=== PATIENT | female | born 1995 | race Caucasian/White ===

== ENCOUNTER 2017-07-13 02:32 | Observation (INO) | payer OTHER ==
[~2017-07-13] VITALS: Ht 157.5 cm; Wt 69.0 kg
[2017-07-13] VITALS (14 sets, daily range): BP systolic 106–139; BP diastolic 48–79; PULSE 69–120; RESP 16–20; TEMP 97.6–99; O2SAT 100
[~2017-07-13 02:32] MED LIST: ZITH500T PO
[2017-07-13] MEDS ORDERED: FERR140T PO (02:52)
[2017-07-13] MEDS ORDERED: PRENTAB7 (02:52)
[2017-07-13 03:02] LABS: BASOPHIL % 0.2 % (0.0-2.0); EOSINOPHIL % 0.1 % (0.0-4.0); HEMATOCRIT 32.5 % (35.0-46.0); LYMPH % 22.2 % (9.0-44.0); LYMPHOCYTE # 3.1 TH/MM3 (1.0-4.8); MEAN CELL VOLUME 87.3 FL (80.0-100.0); MEAN CORPUSCULAR HEMOGLOBIN 30.7 PG (27.0-34.0); MEAN CORPUSCULAR HGB CONC 35.1 % (32.0-36.0); MONO % 5.6 % (0.0-8.0); NEUT % 71.9 % (16.0-70.0); PLATELET COUNT 282 TH/MM3 (150-450); RED BLOOD COUNT 3.72 MIL/MM3 (4.00-5.30); RED CELL DISTRIBUTION WIDTH 12.5 % (11.6-17.2); WHITE BLOOD COUNT 13.9 TH/MM3 (4.0-11.0)
[2017-07-13 03:03] LABS: HEMO FLAGS DIFF FINAL
[2017-07-13 03:12] LABS: BACTERIA, URINE MANY /hpf; BLOOD, URINE MOD (NEG); COMMENT (UR) CULTURE INDICATED; CULTURE IF INDICATED CULTURE INDICATED; GLUCOSE,URINE NEG (NEG); KETONE, URINE NEG (NEG); NITRITE,URINE NEG (NEG); SQUAMOUS EPITHELIAL CELL URINE 19 /hpf (0-5); URINE COLOR YELLOW (YELLW/STRAW)
[2017-07-13 03:14] LABS: ALT (GPT) 68 U/L (9-42); ANION GAP 12 MEQ/L (5-15); AST (GOT) 34 U/L (16-38); BLOOD UREA NITROGEN 12 MG/DL (7-18); CHLORIDE 104 MEQ/L (98-107); POTASSIUM 3.6 MEQ/L (3.5-5.1); SODIUM (NA) 138 MEQ/L (136-145)
[2017-07-13 03:15] LABS: ALKALINE PHOSPHATASE 148 U/L (45-117); GLOMERULAR FILTRATION RATE 118 ML/MIN (>89); TOTAL BILIRUBIN ADULT 0.2 MG/DL (0.2-1.0)
[2017-07-13] MEDS ORDERED: cefTRIAXone INJ 1,000 MG in SODIUM CHLORIDE 0.9% INJ 100 ML IV ONE (03:30)
[2017-07-13] MEDS ORDERED: CEPH-460 PO (04:17)
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
[2017-07-13] MEDS ORDERED: cefTRIAXone INJ 1,000 MG in SODIUM CHLORIDE 0.9% INJ 100 ML IV SCH (05:00)
[2017-07-13] MEDS ORDERED: SODIUM CHLORIDE 0.9% FLUSH 10 ML FLUSH IV FLUSH PRN (05:00)
[2017-07-13] MEDS ORDERED: ONDANSETRON HCL 4 MG/2 ML VIAL IV PUSH PRN (05:00)
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
[2017-07-13] MEDS: ACETAMINOPHEN 325 MG TAB PO PRN ×3 (05:54→20:04)
[2017-07-13 07:52] LABS: INTERNATIONAL NORMALIZED RATIO 0.9 RATIO; PROTHROMBIN TIME - PATIENT 10.3 SEC (9.8-11.6)
[2017-07-13] MEDS: SODIUM CHLORIDE 0.9% FLUSH 10 ML FLUSH IV FLUSH SCH (08:27)
[2017-07-14] MEDS ORDERED: cefTRIAXone INJ 1,000 MG in SODIUM CHLORIDE 0.9% INJ 100 ML IV SCH (04:00)
[2017-07-14] MEDS: SODIUM CHLORIDE 0.9% FLUSH 10 ML FLUSH IV FLUSH SCH (04:09)
[2017-07-14 04:12] VITALS: BP 115/63; PULSE 72; RESP 18; TEMP 97.7
[2017-07-14 07:50] VITALS: RESP 17; TEMP 98
[2017-07-14 10:00] VITALS: RESP 18
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
[2017-07-14 10:39] LABS: AUTOMATED NEUTROPHIL # 5.3 TH/MM3 (1.8-7.7); BASOPHIL % 0.6 % (0.0-2.0); EOSINOPHIL % 0.3 % (0.0-4.0); HEMO FLAGS DIFF FINAL; LYMPH % 29.7 % (9.0-44.0); LYMPHOCYTE # 2.5 TH/MM3 (1.0-4.8); MEAN CELL VOLUME 88.5 FL (80.0-100.0); MEAN CORPUSCULAR HEMOGLOBIN 30.7 PG (27.0-34.0); MEAN CORPUSCULAR HGB CONC 34.7 % (32.0-36.0); MONO % 6.7 % (0.0-8.0); NEUT % 62.7 % (16.0-70.0); PLATELET COUNT 267 TH/MM3 (150-450); RED BLOOD COUNT 3.62 MIL/MM3 (4.00-5.30); RED CELL DISTRIBUTION WIDTH 12.6 % (11.6-17.2); WHITE BLOOD COUNT 8.5 TH/MM3 (4.0-11.0)
[2017-07-14 11:00] LABS: ANION GAP 9 MEQ/L (5-15); AST (GOT) 35 U/L (16-38); BICARBONATE 22.2 MEQ/L (21.0-32.0); BLOOD UREA NITROGEN 8 MG/DL (7-18); CHLORIDE 105 MEQ/L (98-107); GLOMERULAR FILTRATION RATE 154 ML/MIN (>89); SODIUM (NA) 136 MEQ/L (136-145)
[2017-07-14 11:02] LABS: ALT (GPT) 68 U/L (9-42)
[2017-07-14 11:04] LABS: ALKALINE PHOSPHATASE 124 U/L (45-117); TOTAL BILIRUBIN ADULT 0.2 MG/DL (0.2-1.0)
[2017-07-14] MEDS ORDERED: CEPH-460 PO (11:11)
[2017-07-14] MEDS ORDERED: CEPH500C PO (11:15)
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
[2017-07-19 10:53] LABS: BATH SALTS (MDPV) UR NEG (NEG); ECSTASY (MDMA) UR NEG (NEG); HEROIN (6-ACETYLMORPHINE) UR NEG (NEG); K2 SPICE UR NEG (NEG); OBMETHADONE UR NEG (NEG); PHENCYCLIDINE URINE NEG (NEG)
[2017-07-19 10:54] LABS: OBGABAPENTIN UR NEG (NEG); OBHYDROMORPHONE U NEG (NEG)
[2017-07-29] MEDS ORDERED: FLU60SYR19 IM (14:18)
[2017-07-29] MEDS ORDERED: RANI150T PO (14:48)
== END 2017-07-14 11:31 | disposition home or self-care (01) ==
LOC: NEPE 02:32 → H2EA 04:55
PROVIDERS: ADMIT Obstetrics & Gynecology Maternal & Fetal Medicine; ATTEND Obstetrics & Gynecology Maternal & Fetal Medicine
DX: Z34.92 Encounter for supervision of normal pregnancy, unspecified, second trimester (principal); O23.12 Infections of bladder in pregnancy, second trimester; O24.912 Unspecified diabetes mellitus in pregnancy, second trimester; V89.2XXA Person injured in unspecified motor-vehicle accident, traffic, initial encounter; Y92.410 Unspecified street and highway as the place of occurrence of the external cause; Z3A.27 27 weeks gestation of pregnancy
CPT/HCPCS: 76816; 80053; 80307; 81001; 85025; 85384; 85610; 86403; 86901; 87086; 96365; 96376; 99285; G0378; G0481; J0696

== ENCOUNTER 2017-07-18 16:43 | Emergency (ER) | payer OTHER ==
[~2017-07-18] VITALS: Ht 157.5 cm; Wt 68.8 kg
[~2017-07-18 16:43] MED LIST changes: +CEPH500C PO; +FERR140T PO; +PRENTAB7; -ZITH500T PO
[2017-07-18 16:57] VITALS: BP 114/65; PULSE 75; RESP 18; TEMP 98.1; O2SAT 99
[2017-07-18] MEDS ORDERED: HYDR-4107 PO (18:32)
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
[2017-07-29] MEDS ORDERED: FLU60SYR19 IM (14:18)
[2017-07-29] MEDS ORDERED: RANI150T PO (14:48)
== END 2017-07-18 18:49 | disposition home or self-care (01) ==
LOC: PHEFT 16:43 → PHED 18:49
DX: O99.352 Diseases of the nervous system complicating pregnancy, second trimester (principal); G44.209 Tension-type headache, unspecified, not intractable; Z3A.28 28 weeks gestation of pregnancy
CPT/HCPCS: 99283

== ENCOUNTER 2017-09-21 15:47 | Emergency (ER) | payer OTHER ==
[~2017-09-21 15:47] MED LIST changes: -CEPH500C PO; +RANI150T PO; +ZANT150T2 PO
--- NOTE | 2017-09-21 17:00 | PD ---
HPI Chief Complaint high blood pressure Date Seen: Sep 21, 2017 Travel History International Travel<30 Days: No Contact w/Intl Traveler<30Days: No Known Affected Area: No History of Present Illness HPI 21-year-old who was seen earlier today for a consult due to a breech presentation. Thereafter she presented at her cover creaser's office and was noted to have a blood pressure 116/90 and some protein in her urine. A sent her here for an evaluation patient denies headache abdominal pain or swelling. History Past Medical History Medical History: Denies Significant Hx Past Surgical History Surgical History: No Previous Surgery Family History Family History: Negative Social History Tobacco Use: No Substance Abuse: No Allergies-Medications (Allergen,Severity, Reaction): Coded Allergies: No Known Allergies (Verified Allergy, Unknown, 09/14/17) Home Meds Active Scripts Ranitidine (Zantac) 150 Mg Tab, 150 MG PO BID for Reduce Stomach Acid, #60 TAB 5 Refills Prov:Sandra Wilson GEAR INSPECTOR 09/07/17 Ranitidine (Ranitidine) 150 Mg Tab, 150 MG PO DAILY for Heartburn Management, # 30 TAB 1 Refill Prov:Isabella Quan CNM [facility] 07/29/17 Reported Medications Ferrous Sulfate ER (Ferrous Sulfate ER) 140 Mg (45 Mg Iron) Tab, 140 MG PO DAILY for Nutritional Supplement, #30 TAB 0 Refills 07/13/17 Pnv No.95/Ferrous Fum/Folic AC ( Vitamins Tablet) 28 Mg Iron-800 Mcg Tablet 07/13/17 Review of Systems Except as stated in HPI: all other systems reviewed are Neg Physical Exam Narrative GENERAL: Well-nourished, well-developed patient. SKIN: Warm and dry. HEAD: Normocephalic and atraumatic. EYES: No scleral icterus. No injection or drainage. ENT: No nasal drainage noted. Mucous membranes pink. Airway patent. NECK: Supple, trachea midline. No JVD. CARDIOVASCULAR: Regular rate and rhythm without murmurs, gallops, or rubs. RESPIRATORY: Breath sounds equal bilaterally. No accessory muscle use. ABDOMEN/GI: Abdomen soft, non-tender, bowel sounds present, no rebound, no guarding Gravid to [-] weeks size 36 Fundal Height: [-] GENITOURINARY: Deferred patient was checked in the office today and she was 1 cm External Genitalia: intact and normal in appearance BUS glands: [-] Cervix: [-] Dilatation: [-] Effacement: [-] Station: [-] Presentation: [-] Membranes: [intact or ruptured] Uterine Contractions: [-] FHT's: Category: [-] 1 Baseline: [-] 140 Reactive: [-] Moderate Variability: [-] Moderate Decels: [-] Absent EXTREMITIES: No cyanosis or edema. BACK: Nontender without obvious deformity. No CVA tenderness. NEUROLOGICAL: Awake and alert. Motor and sensory grossly within normal limits. Five out of 5 muscle strength in all muscle groups. Normal speech. Data Data Vital Signs Reviewed: Yes [facility] Medical Record Reviewed: Yes Plan 21-year-old who is at 37-38 weeks gestation with normotensive blood pressure readings 110-120/70-74, no protein dysuria is noted Patient will follow-up with her obstetrical provider as scheduled Diagnosis Diagnosis: Primary Impression: 37 weeks gestation of Additional Impressions: Breech presentation Elevated blood pressure affecting , antepartum Cristela Ayala MD Sep 21, 2017 16:59
== END 2017-09-21 17:15 | disposition home or self-care (01) ==
LOC: HOBED 15:47
DX: O26.893 Other specified pregnancy related conditions, third trimester (principal); R03.0 Elevated blood-pressure reading, without diagnosis of hypertension; O32.1XX0 Maternal care for breech presentation, not applicable or unspecified; Z3A.37 37 weeks gestation of pregnancy
CPT/HCPCS: 59025

== ENCOUNTER 2017-09-29 06:15 | Inpatient (IN) | payer OTHER ==
[~2017-09-29] VITALS: Ht 157.5 cm; Wt 78.0 kg
[2017-09-29] VITALS (44 sets, daily range): BP systolic 112–163; BP diastolic 61–109; PULSE 56–146; RESP 18; TEMP 97.8–98.6
--- NOTE | 2017-09-29 06:49 | PD ---
HPI Chief Complaint Elevated BP Travel History International Travel<30 Days: No Contact w/Intl Traveler<30Days: No Known Affected Area: No History of Present Illness HPI 21 year old, care complicated by breech presentation The patient presents for evaluation of elevated blood pressures. She reports that she was seen by her OB yesterday in her blood pressure was 130s over 80s. She has subsequently been checking her blood pressures at home. Yesterday her blood pressures at home or in the 130s over 90s. She reports that she awoke at 3 AM to use the bathroom and checked her blood pressure at that time which was in the 140s over 90s. She separately went back to bed and got up again at 5 AM to check her blood pressures which was 152/107. She reports that she occasionally has a headache, but denies any severe headache or any headache at this time. She denies any right upper quadrant or epigastric pain. She denies any visual changes. She reports good movement. She denies any contractions or painful cramping. She denies any leaking of fluid or vaginal bleeding. She is scheduled for primary delivery in 10/06/17 as she desires to have the baby on Weeks Gestation: 38 Para: 1 History Past Medical History Medical History: Denies Significant Hx Obstetric History Obstetric History Past Surgical History Narrative Surgical Denies Family History Narrative Family History HTN Social History Alcohol Use: No Tobacco Use: No Substance Abuse: No Allergies-Medications (Allergen,Severity, Reaction): Coded Allergies: No Known Allergies (Verified Allergy, Unknown, 09/14/17) Home Meds Active Scripts Ranitidine (Zantac) 150 Mg Tab, 150 MG PO BID for Reduce Stomach Acid, #60 TAB 5 Refills Prov:Sandra Wilson SAFETY PERSON 09/07/17 Ranitidine (Ranitidine) 150 Mg Tab, 150 MG PO DAILY for Heartburn Management, # 30 TAB 1 Refill Prov:Isabella Quan CNM [facility] 07/29/17 Reported Medications Ferrous Sulfate ER (Ferrous Sulfate ER) 140 Mg (45 Mg Iron) Tab, 140 MG PO DAILY for Nutritional Supplement, #30 TAB 0 Refills 07/13/17 Pnv No.95/Ferrous Fum/Folic AC ( Vitamins Tablet) 28 Mg Iron-800 Mcg Tablet 07/13/17 Review of Systems Except as stated in HPI: all other systems reviewed are Neg Physical Exam Narrative GENERAL: Well-nourished, well-developed patient. SKIN: Warm and dry. HEAD: Normocephalic and atraumatic. EYES: No scleral icterus. No injection or drainage. ENT: No nasal drainage noted. Mucous membranes pink. Airway patent. NECK: Supple, trachea midline. No JVD. CARDIOVASCULAR: Regular rate and rhythm without murmurs, gallops, or rubs. RESPIRATORY: Breath sounds equal bilaterally. No accessory muscle use. BREASTS: Bilateral exam showed no masses , no retractions, no nipple discharge. ABDOMEN/GI: Abdomen soft, non-tender, bowel sounds present, no rebound, no guarding Gravid GENITOURINARY: Deferred FHT's: heart tones are in the 120s with moderate long-term variability, good accelerations, no decelerations. This is a category 1 heart rate tracing and a reactive NST EXTREMITIES: No cyanosis or edema. BACK: Nontender without obvious deformity. NEUROLOGICAL: Awake and alert. Motor and sensory grossly within normal limits. Normal speech. DTR 2+, no clonus Musculoskeletal: Grossly normal range of motion, gait, muscle strength Psychiatric: Grossly normal memory and affect MDM Plan Assessment/plan: 1. IUP at 38.5 2. Gestational hypertension: Preeclampsia labs ordered with a CBC, CMP, uric acid, urinalysis, and protein creatinine ratio. Patient is asymptomatic. We' ll also check serial blood pressures. 3. Breech presentation: As per patient report the fetus is breech presentation and she is scheduled for delivery on 10/06/17. We discussed an attempt at external cephalic version and the risks, benefits, and alternatives were discussed with the patient. We discussed that there is a risk of intolerance of the procedure that would necessitate an emergent delivery. We discussed that while there is often a drop in the heart rate immediately following the procedure, this typically resolves. We discussed that the success rate varies between 1/3 and 2/3 depending on the gestational age, size of the , gravity/parity, and provider. We discussed that proceeding with a scheduled delivery is reasonable and her would be performed in such a manner that she could attempt a with a future should she desire. All of her questions were answered. 4. well-being: Reassuring testing with reactive NST and category 1 heart rate tracing. heart rate is reassuring and appropriate for gestational age. We'll continue monitoring during evaluation. Patient Instructions: General Instructions Departure Forms: Tests/Procedures Sandra Liu MD Sep 29, 2017 06:49
[2017-09-29 08:30] LABS: HEMATOCRIT 32.8 % (35.0-46.0); HEMOGLOBIN 11.4 GM/DL (11.6-15.3); MEAN CELL VOLUME 87.3 FL (80.0-100.0); MEAN CORPUSCULAR HEMOGLOBIN 30.4 PG (27.0-34.0); MEAN CORPUSCULAR HGB CONC 34.8 % (32.0-36.0); MEAN PLATELET VOLUME 9.3 FL (7.0-11.0); PLATELET COUNT 237 TH/MM3 (150-450); RED BLOOD COUNT 3.76 MIL/MM3 (4.00-5.30); RED CELL DISTRIBUTION WIDTH 13.2 % (11.6-17.2); WHITE BLOOD COUNT 8.9 TH/MM3 (4.0-11.0)
[2017-09-29 08:38] LABS: BACTERIA, URINE OCC /hpf; BILIRUBIN, URINE NEG (NEG); BLOOD, URINE NEG (NEG); GLUCOSE,URINE NEG (NEG); KETONE, URINE NEG (NEG); MUCUS URINE FEW /lpf (OCC); NITRITE,URINE NEG (NEG); PH, URINE 6.5 (5.0-8.5); SQUAMOUS EPITHELIAL CELL URINE 2 /hpf (0-5); URINE COLOR YELLOW (YELLW/STRAW); URINE LEUKOCYTE ESTERASE LARGE (NEG)
[2017-09-29 08:45] LABS: ALBUMIN 2.6 GM/DL (3.4-5.0); ALT (GPT) 36 U/L (9-42); AST (GOT) 25 U/L (16-38); BICARBONATE 23.9 MEQ/L (21.0-32.0); BLOOD UREA NITROGEN 9 MG/DL (7-18); CALCIUM 8.8 MG/DL (8.5-10.1); CHLORIDE 105 MEQ/L (98-107); CREATININE 0.48 MG/DL (0.50-1.00); GLOMERULAR FILTRATION RATE 165 ML/MIN (>89); GLUCOSE,RANDOM 67 MG/DL (74-106); SODIUM (NA) 138 MEQ/L (136-145)
[2017-09-29 08:51] LABS: ALKALINE PHOSPHATASE 166 U/L (45-117); TOTAL BILIRUBIN ADULT 0.1 MG/DL (0.2-1.0); TOTAL PROTEIN 6.8 GM/DL (6.4-8.2)
[2017-09-29] MEDS ORDERED: hydrALAZINE HCL 20 MG/ML VIAL IV PUSH PRN ×2 (10:15→10:45)
[2017-09-29] MEDS ORDERED: LIDOCAINE HCL 1% 50 ML VIAL INFIL PRN (10:30)
[2017-09-29] MEDS ORDERED: SODIUM CHLORID 0.9% 500 ML INJ 500 ML IV PRN (10:30)
[2017-09-29] MEDS ORDERED: CITRIC ACID-SODIUM CITRATE LIQ 30 ML UDC PO SCH (10:30)
[2017-09-29] MEDS ORDERED: LIDOCAINE HCL 1% 50 ML VIAL I-DERMAL PRN (10:30)
[2017-09-29] MEDS ORDERED: LACTATED RINGER'S 1000 ML INJ 1,000 ML IV PRN (10:30)
[2017-09-29] MEDS ORDERED: MINERAL OIL 10 ML VIAL TOPICAL PRN (10:30)
[2017-09-29] MEDS ORDERED: OXYTOCIN 30 UNITS-500ML PREMIX 500 ML IV ONE (10:30)
[2017-09-29] MEDS ORDERED: SODIUM CHLOR 0.9% 1000 ML INJ 1,000 ML IV PRN (11:00)
--- NOTE | 2017-09-29 11:08 | HHI.HP ---
HPI Chief Complaint elevated BP at home Date Seen: Sep 29, 2017 Time Seen: 10:00 Travel History International Travel<30 Days: No Contact w/Intl Traveler<30Days: No Known Affected Area: No History of Present Illness HPI Ms. Youssef is a 21yo at 38/5 weeks gestation who presenting to the [facility] early this morning due to elevated BPs at home. Overnight when she checked her BP it was in the 140-150s/90-100s. No PAEZ, no abdominal pain, no visual changes. + movement. No contractions, no LOF, no vaginal bleeding. Was scheduled on 10-06-17 for primary C/S due to breech presentation. Weeks Gestation: 38 Para: 0 : 1 History Past Medical History Medical History: Denies Significant Hx Obstetric History Obstetric History Past Surgical History Surgical History: No Previous Surgery Family History Narrative Family History HTN Social History Alcohol Use: No Tobacco Use: No Substance Abuse: No Allergies-Medications (Allergen,Severity, Reaction): Coded Allergies: No Known Allergies (Verified Allergy, Unknown, 09/14/17) Home Meds Active Scripts Ranitidine (Zantac) 150 Mg Tab, 150 MG PO BID for Reduce Stomach Acid, #60 TAB 5 Refills Prov:Sandra Wilson PLASTIC STRAIGHTENING ROLL OPERATOR 09/07/17 Ranitidine (Ranitidine) 150 Mg Tab, 150 MG PO DAILY for Heartburn Management, # 30 TAB 1 Refill Prov:Isabella Quan CNM [facility] 07/29/17 Reported Medications Ferrous Sulfate ER (Ferrous Sulfate ER) 140 Mg (45 Mg Iron) Tab, 140 MG PO DAILY for Nutritional Supplement, #30 TAB 0 Refills 07/13/17 Pnv No.95/Ferrous Fum/Folic AC ( Vitamins Tablet) 28 Mg Iron-800 Mcg Tablet 07/13/17 Review of Systems General / Constitutional: No: Fever, Chills Eyes: No: Blurred Vision HENT: No: Headaches Cardiovascular: No: Chest Pain or Discomfort Respiratory: No: Short of Breath Gastrointestinal: No: Nausea, Vomiting, Abdominal Pain Genitourinary: No: Dysuria Musculoskeletal: No: Weakness Skin: No Rash Neurologic: No: Dizziness Physical Exam Vital Signs Date Time Temp Pulse Resp B/P (MAP) Pulse Ox O2 Delivery O2 Flow Rate FiO2 09/29/17 10:01 56 131/109 (116) 09/29/17 09:46 56 146/99 (115) 09/29/17 09:30 57 136/87 (103) 09/29/17 09:15 72 126/84 (98) 09/29/17 09:00 64 140/94 (109) 09/29/17 08:45 56 133/81 (98) 09/29/17 08:30 59 140/97 (111) 09/29/17 08:15 62 140/100 (113) Narrative GENERAL: Well-nourished, well-developed patient. SKIN: Warm and dry. HEAD: Normocephalic and atraumatic. EYES: No scleral icterus. No injection or drainage. ENT: No nasal drainage noted. Mucous membranes pink. Airway patent. NECK: Supple, trachea midline. No JVD. CARDIOVASCULAR: Regular rate and rhythm without murmurs, gallops, or rubs. RESPIRATORY: Breath sounds equal bilaterally. No accessory muscle use. BREASTS: Bilateral exam showed no masses , no retractions, no nipple discharge. ABDOMEN/GI: Abdomen soft, non-tender, bowel sounds present, no rebound, no guarding Gravid to 38 weeks size GENITOURINARY: External Genitalia: intact and normal in appearance Cervix: closed Effacement: 50% Presentation: vertex Membranes: intact FHT's: Category: 1 Baseline: 130-140s Reactive: yes Variability: moderate Decels: none EXTREMITIES: No cyanosis or edema. BACK: Nontender without obvious deformity. No CVA tenderness. NEUROLOGICAL: Awake and alert. Motor and sensory grossly within normal limits. Five out of 5 muscle strength in all muscle groups. Normal speech. Caprini VTE Risk Assessment Caprini VTE Risk Assessment: Mod/High Risk (score >= 2) Caprini Risk Assessment Model Point Value = 1 Point Value = 2 Point Value = 3 Point Value = 5 Age 41-60 Minor surgery BMI > 25 kg/m2 Swollen legs Varicose veins or History of unexplained or recurrent spontaneous Oral contraceptives or hormone replacement Sepsis (< 1 month) Serious lung disease, including pneumonia (< 1 month) Abnormal pulmonary function Acute myocardial infarction Congestive heart failure (< 1 month) History of inflammatory bowel disease Medical patient at bed rest Age 61-74 Arthroscopic surgery Major open surgery (> 45 min) Laparoscopic surgery (> 45 min) Malignancy Confined to bed (> 72 hours) Immobilizing plaster cast Central venous access Age >= 75 History of VTE Family history of VTE Factor V Leiden Prothrombin [id number] Lupus anticoagulant Anticardiolipin antibodies Elevated serum homocysteine Heparin-induced thrombocytopenia Other congenital or acquired thrombophilia Stroke (< 1 month) Elective arthroplasty Hip, pelvis, or leg fracture Acute spinal cord injury (< 1 month) Prophylaxis Regimen Total Risk Factor Score Risk Level Prophylaxis Regimen 0-1 Low Early ambulation 2 Moderate Order ONE of the following: *Sequential Compression Device (SCD) *Heparin 5000 units SQ BID 3-4 Higher Order ONE of the following medications: *Heparin 5000 units SQ TID *Enoxaparin/Lovenox 40 mg SQ daily (WT < 150 kg, CrCl > 30 mL/min) *Enoxaparin/Lovenox 30 mg SQ daily (WT < 150 kg, CrCl > 10-29 mL/min) *Enoxaparin/Lovenox 30 mg SQ BID (WT < 150 kg, CrCl > 30 mL/min) AND/OR *Sequential Compression Device (SCD) 5 or more Highest Order ONE of the following medications: *Heparin 5000 units SQ TID (Preferred with Epidurals) *Enoxaparin/Lovenox 40 mg SQ daily (WT < 150 kg, CrCl > 30 mL/min) *Enoxaparin/Lovenox 30 mg SQ daily (WT < 150 kg, CrCl > 10-29 mL/min) *Enoxaparin/Lovenox 30 mg SQ BID (WT < 150 kg, CrCl > 30 mL/min) AND *Sequential Compression Device (SCD) Data Data Vital Signs Reviewed: Yes Orders Orders Vital Signs (Adult) .ON ADMISSION (09/29/17 08:16) ^ Labor Status (09/29/17 08:16) Urinalysis - C+S If Indicated (09/29/17 08:16) ^ Non Stress Test (09/29/17 08:16) Comprehensive Metabolic Panel (09/29/17 08:16) Uric Acid (09/29/17 08:16) Protein Creat Ratio, Random Ur (09/29/17 08:17) Urine Culture (09/29/17 06:36) Admit To Inpatient (09/29/17 ) Code Status (09/29/17 10:09) Vital Signs (Adult) .Per protocol (09/29/17 10:09) Activity Oob Ad Tawny (09/29/17 10:09) Heart (09/29/17 10:09) Amnioinfusion (09/29/17 10:09) Urinary Catheter Management .ONCE (09/29/17 10:09) Diet Liquid (09/29/17 Lunch) Lactated Ringer's 1000 Ml Inj (Lr 1000 M (09/29/17 10:30) Lactated Ringer's 1000 Ml Inj (Lr 1000 M (09/29/17 10:30) Sodium Chlorid 0.9% 500 Ml Inj (Ns 500 M (09/29/17 10:30) Sodium Chlor 0.9% 1000 Ml Inj (Ns 1000 M (09/29/17 11:00) Lidocaine 1% Inj (50 Ml) (Xylocaine 1% I (09/29/17 10:30) Citric Acid-Sodium Citrate Liq (Bicitra (09/29/17 10:30) Fentanyl Inj (Fentanyl Inj) (09/29/17 10:30) Fentanyl Inj (Fentanyl Inj) (09/29/17 10:30) Hold Clot (09/29/17 10:09) Abo/Rh Blood Type (09/29/17 10:09) Drug Screen, Random Urine (09/29/17 10:09) Resp Oxygen Non Rebreathe Mask (09/29/17 ) ^ Epidural / Intrathecal Infus (09/29/17 10:09) Oxytocin 30 Units-500ml Premix (Pitocin (09/29/17 10:30) Lidocaine 1% Inj (50 Ml) (Xylocaine 1% I (09/29/17 10:30) Light Mineral Oil (Muri-Lube Oil) (09/29/17 10:30) Inpatient Certification (09/29/17 ) Ob (2e) Additional Admit Info (09/29/17 10:11) Hydralazine Inj (Apresoline Inj) (09/29/17 10:15) Hydralazine Inj (Apresoline Inj) (09/29/17 10:45) Misoprostol (Cytotec) (09/29/17 10:15) Complete Blood Count With Diff (09/29/17 07:40) Labs Laboratory Tests Test 09/29/17 06:36 09/29/17 07:40 Urine Color YELLOW Urine Turbidity HAZY Urine pH 6.5 Urine Specific [place] 1.020 Urine Protein TRACE Urine Glucose (UA) NEG Urine Ketones NEG Urine Occult Blood NEG Urine Nitrite NEG Urine Bilirubin NEG Urine Urobilinogen LESS THAN 2.0 Urine Leukocyte Esterase LARGE Urine RBC 4 Urine WBC 13 Urine Squamous Epithelial Cells 2 Urine Bacteria OCC Urine Mucus FEW Microscopic Urinalysis Comment CULTURE INDICATED Urine Random Creatinine 93 Urine Random Total Protein 47 Urine Protein/Creatinine Ratio 0.51 White Blood Count 8.9 Red Blood Count 3.76 Hemoglobin 11.4 Hematocrit 32.8 Mean Corpuscular Volume 87.3 Mean Corpuscular Hemoglobin 30.4 Mean Corpuscular Hemoglobin Concent 34.8 Red Cell Distribution Width 13.2 Platelet Count 237 Mean Platelet Volume 9.3 Blood Urea Nitrogen 9 Creatinine 0.48 Random Glucose 67 Total Protein 6.8 Albumin 2.6 Calcium Level 8.8 Uric Acid 4.6 Alkaline Phosphatase 166 Aspartate Amino Transf (AST/SGOT) 25 Alanine Aminotransferase (ALT/SGPT) 36 Total Bilirubin 0.1 Sodium Level 138 Potassium Level 3.9 Chloride Level 105 Carbon Dioxide Level 23.9 Anion Gap 9 Estimat Glomerular Filtration Rate 165 Date/Time Source Procedure Growth Status 09/29/17 06:36 Urine Clean Catch Urine Culture Pending Received Assessment/Plan Problem List: (1) Elevated blood pressure affecting , antepartum ICD Codes: O16.9 - Unspecified maternal hypertension, unspecified trimester Status: Acute (2) Encounter for induction of labor ICD Codes: Z34.90 - Encounter for supervision of normal , unspecified , unspecified trimester Status: Acute Assessment and Plan Ms. Youssef is a 21yo at 38/5 weeks gestation presenting due to elevated BP. Will start induction of labor due to this. -FHT shows category I tracing -Vertex presentation confirmed by beside U/S, therefore vaginal delivery will be attempted -Will perform cervical ripening by Cytotec 25mcg q4h vaginally -Continue to monitor labor progress Maia Landry MD R1 Sep 29, 2017 11:08
[2017-09-29 11:39] LABS: BANDS 2 % (0-6); LYMPHOCYTES 26 % (9-44); MONOCYTES 16 % (0-8); NEUTROPHIL # MANUAL DIFF 5.2 TH/MM3 (1.8-7.7); POLYS (SEG NEUTROPHILS) 56 % (16-70)
[2017-09-29] MEDS: LACTATED RINGER'S 1000 ML INJ 1,000 ML IV SCH ×2 (11:59→18:30)
[2017-09-29] MEDS: MISOPROSTOL 100 MCG TAB VAGINAL SCH ×3 (12:00→20:00)
[2017-09-29] MEDS ORDERED: ONDANSETRON HCL 4 MG/2 ML VIAL IV PUSH PRN (19:30)
[2017-09-29] MEDS ORDERED: fentaNYL 2MCG-BUPIV 0.125% INJ 100 ML ONE (19:56)
[2017-09-29] MEDS ORDERED: ePHEDrine/NS 25 MG/5 ML SYRINGE ONE (19:57)
[2017-09-29] MEDS ORDERED: DO NOT ADMINISTER ANTICOAGULANTS PRN (22:00)
[2017-09-29] MEDS ORDERED: ePHEDrine/NS 25 MG/5 ML SYRINGE IV PUSH PRN (22:00)
[2017-09-29] MEDS ORDERED: NO SYSTEM NARCOTICS PRN (22:00)
[2017-09-29] MEDS ORDERED: fentaNYL 2MCG-BUPIV 0.125% 100 ML EPIDURAL SCH (22:00)
[2017-09-30] VITALS (21 sets, daily range): BP systolic 119–149; BP diastolic 62–93; PULSE 67–127; RESP 16–20; TEMP 98.1–98.8; O2SAT 97–98
[2017-09-30] MEDS ORDERED: OXYTOCIN 30 UNITS-500ML PREMIX 500 ML ONE (00:36)
[2017-09-30] MEDS ORDERED: OXYTOCIN 30 UNITS/NS 500ML PREMIX IV PRN (01:00)
--- NOTE | 2017-09-30 03:08 | PD.OB.DELI ---
Weeks gestation: 38 Pt started active labor?: Yes Medical induction of labor?: Yes Artificial rupture of membrane: Yes Anesthesia: Epidural Episiotomy: None Vaginal Delivery: Normal, Spontaneous Presentation: Occiput anterior Nuchal Cord: None Delayed cord clamping (45 sec): Yes Infant: Female Delivery date: Sep 30, 2017 Delivery time: 23:00 One Minute : 9 Five Minute : 9 Weight: 3040 Placenta: Spontaneous delivery, Intact Laceration: Perineal laceration, 2 deg Repair: Chromic running Estimated blood loss: 200 Additional Information Performed under supervision of Dr. Frey and Jabier Self MD R1 Sep 30, 2017 03:08
[2017-09-30] MEDS ORDERED: DOCUSATE SODIUM 50 MG/SENNA 8.6 MG TAB PO PRN (03:15)
[2017-09-30] MEDS ORDERED: BENZOCAINE 20% TOPICAL SPRAY 60 ML CAN TOPICAL PRN (03:15)
[2017-09-30] MEDS ORDERED: ZOLPIDEM TARTRATE 5 MG TAB PO PRN (03:15)
[2017-09-30] MEDS ORDERED: ONDANSETRON ODT 4 MG TAB PO PRN (03:15)
[2017-09-30] MEDS ORDERED: OXYTOCIN 30 UNITS-500ML PREMIX 500 ML IV SCH (03:15)
[2017-09-30] MEDS ORDERED: WITCH HAZEL 50%/GLYCERIN 12.5% 40 PAD JAR TOPICAL PRN (03:15)
[2017-09-30] MEDS ORDERED: SODIUM CHLORIDE 0.9% FLUSH 10 ML FLUSH IV FLUSH PRN (03:15)
[2017-09-30] MEDS ORDERED: ALUMINUM/MAGNESIUM/SIMETH 30 ML CUP PO PRN (03:15)
[2017-09-30] MEDS ORDERED: ACETAMINOPHEN 325 MG TAB PO PRN (03:15)
[2017-09-30] MEDS: IBUPROFEN 800 MG TAB PO PRN ×3 (04:51→23:34)
--- NOTE | 2017-09-30 08:10 | HHI.OB ---
Subjective Post Day: 0 Remarks day #0. AFVSS overnight. Pain minimal. Decreased lochia. Denies dysuria. No breast tenderness. She is feeding the baby via breast. Appetite good. No nausea or vomiting. Endorses flatus. No bowel movement. Ambulating well. Denies calf pain, shortness of breath, or cough. Otherwise, she is doing well this morning and has no other complaints. Objective Vitals/I&O Vital Signs Date Time Temp Pulse Resp B/P (MAP) Pulse Ox O2 Delivery O2 Flow Rate FiO2 09/30/17 05:00 98.2 72 18 146/89 (108) 97 09/30/17 04:15 18 09/30/17 04:00 75 129/80 (96) 09/30/17 03:30 80 142/74 (96) 09/30/17 03:26 18 09/30/17 03:00 90 129/91 (104) 09/30/17 02:53 98.8 09/30/17 02:53 18 98 09/30/17 02:53 91 141/82 (101) 09/30/17 02:10 98.8 09/30/17 02:05 18 09/30/17 02:00 127 125/77 (93) 09/30/17 01:43 18 09/30/17 01:30 85 133/85 (101) 09/30/17 01:15 18 09/30/17 01:00 79 135/83 (100) 09/30/17 00:30 18 09/30/17 00:30 67 119/62 (81) 09/30/17 00:15 98.3 16 09/30/17 00:00 75 143/88 (106) 09/29/17 23:30 71 143/82 (102) 09/29/17 23:00 81 128/91 (103) 09/29/17 22:37 68 137/75 (95) 09/29/17 22:30 70 117/73 (88) 09/29/17 22:24 68 123/77 (92) 09/29/17 22:00 75 112/61 (78) 09/29/17 21:55 98.3 18 09/29/17 21:45 130/65 (86) 09/29/17 21:45 79 09/29/17 21:42 146 127/72 (90) 09/29/17 21:40 81 09/29/17 21:39 82 126/86 (99) 09/29/17 21:36 80 126/74 (91) 09/29/17 21:35 78 09/29/17 21:33 81 133/70 (91) 09/29/17 21:30 145/71 (95) 09/29/17 21:30 102 09/29/17 21:27 86 150/96 (114) 09/29/17 21:25 78 09/29/17 21:25 81 160/89 (112) 09/29/17 21:20 85 09/29/17 21:15 102 09/29/17 20:50 69 140/72 (94) 09/29/17 20:08 63 163/90 (114) 09/29/17 19:42 58 163/84 (110) 09/29/17 19:40 18 09/29/17 19:38 63 09/29/17 19:36 97.8 09/29/17 18:59 18 09/29/17 18:00 18 09/29/17 17:00 18 09/29/17 16:26 18 09/29/17 16:25 57 147/76 (99) 09/29/17 15:30 18 09/29/17 14:28 98.2 63 18 153/100 (117) 09/29/17 13:00 18 09/29/17 11:57 98.6 18 09/29/17 11:54 62 141/84 (103) 09/29/17 11:00 18 09/29/17 10:01 56 131/109 (116) 09/29/17 09:46 56 146/99 (115) 09/29/17 09:30 57 136/87 (103) 09/29/17 09:15 72 126/84 (98) 09/29/17 09:00 64 140/94 (109) 09/29/17 08:45 56 133/81 (98) 09/29/17 08:30 59 140/97 (111) 09/29/17 08:15 62 140/100 (113) Objective Remarks GENERAL: Well-nourished, well-developed patient. CARDIOVASCULAR: Regular rate and rhythm without murmurs, gallops, or rubs. RESPIRATORY: Breath sounds equal bilaterally. No accessory muscle use. ABDOMEN/GI: Abdomen soft, non-tender. Fundus: Firm, non-tender at umbilicus. GENITOURINARY: Light to moderate bleeding. EXTREMITIES: No cyanosis or edema, non-tender, without signs of DVT. Medications and IVs Current Medications Medications (Trade) Dose Ordered Sig/Delroy Route Start Time Stop Time Status Last Admin (Apresoline Inj) 10 mg NOW PRN IV PUSH 09/29/17 10:45 10/01/17 10:44 (Cytotec) 25 mcg Q4HR VAGINAL 09/29/17 12:00 09/29/17 16:00 (Zofran Inj) 4 mg Q6H PRN IV PUSH 09/29/17 19:30 Miscellaneous Information No systemic narcotics to be given except... UNSCH PRN .XX 09/29/17 22:00 09/30/17 21:59 Miscellaneous Information DO NOT ADMINISTER ANY ANTICOAGUL... UNSCH PRN .XX 09/29/17 22:00 09/30/17 21:59 (ePHEDrine/NS 25 MG/5 ML SYR) 10 mg UNSCH PRN IV PUSH 09/29/17 22:00 09/30/17 21:59 Oxytocin 500 ml @ 0 mls/hr TITRATE PRN IV 09/30/17 01:00 (NS Flush) 2 ml BID IV FLUSH 09/30/17 09:00 (NS Flush) 2 ml UNSCH PRN IV FLUSH 09/30/17 03:15 Oxytocin 500 ml @ 100 mls/hr CONTINUOUS IV 09/30/17 03:15 09/30/17 08:14 (Tylenol) 650 mg Q4H PRN PO 09/30/17 03:15 (Motrin) 800 mg Q8H PRN PO 09/30/17 03:15 09/30/17 04:51 (Americaine 20% Top Spr) 1 spray Q4H PRN TOPICAL 09/30/17 03:15 09/30/17 04:52 (Tucks Pads) 1 applic QID PRN TOPICAL 09/30/17 03:15 09/30/17 04:51 (Amalia-Colace) 2 tab Q12H PRN PO 09/30/17 03:15 (Ambien) 5 mg HS PRN PO 09/30/17 03:15 (M-M-R Ii Inj) 0.5 ml ONCE ONCE SQ 09/30/17 16:00 09/30/17 16:01 (Boostrix Inj) 0.5 ml ONCE ONCE IM 09/30/17 16:00 09/30/17 16:01 (Mag-Al Plus Susp Liq) 15 ml Q8H PRN PO 09/30/17 03:15 (Zofran Odt) 4 mg Q6H PRN PO 09/30/17 03:15 Assessment/Plan Problem List: (1) Elevated blood pressure affecting , antepartum ICD Codes: O16.9 - Unspecified maternal hypertension, unspecified trimester Status: Acute (2) Encounter for induction of labor ICD Codes: Z34.90 - Encounter for supervision of normal , unspecified , unspecified trimester Status: Acute Assessment and Plan 21y/o who is PPD#0 s/p . -Continue routine care. -Percocet and Motrin PRN pain. -Encouraged OOB. Advised pelvic rest for 6 wks. -Will need a f/u appt. within 6 wks. -Re: ctrl, she is undecided -D/c in 1-2 more days. Kvng Pollock MD Sep 30, 2017 08:09
[2017-09-30] MEDS: SODIUM CHLORIDE 0.9% FLUSH 10 ML FLUSH IV FLUSH SCH ×2 (09:59→18:59)
[2017-09-30] MEDS ORDERED: MEASLES, MUMPS, RUBELLA VACCINE 0.5 ML VIAL SQ ONE (16:00)
[2017-09-30] MEDS ORDERED: DIPHTH/TETANUS/ACEL PERTUSSIS (BOOSTER) 0.5 ML VIAL/PFS IM ONE (16:00)
[2017-09-30] MEDS: MISOPROSTOL 100 MCG TAB VAGINAL SCH ×2 (16:00→19:03)
[2017-10-01 08:00] VITALS: BP 150/96; PULSE 67; RESP 16; TEMP 98; O2SAT 98
[2017-10-01] MEDS ORDERED: IBUP1TAB7 PO (08:18)
[2017-10-01] MEDS ORDERED: PERI PO (08:18)
[2017-10-01] MEDS ORDERED: medroxyPROGESTERone ACETATE SUSP 150 MG/ML SYRINGE IM ONE (08:30)
--- NOTE | 2017-10-01 08:36 | HHI.OB ---
Subjective Post Day: 1 Remarks day #1. AFVSS overnight. Pain minimal. Decreased lochia. Denies dysuria. No breast tenderness. She is feeding the baby via breast. Appetite good. No nausea or vomiting. Endorses flatus. No bowel movement. Ambulating well. Denies calf pain, shortness of breath, or cough. Otherwise, she is doing well this morning and has no other complaints. Objective Vitals/I&O Vital Signs Date Time Temp Pulse Resp B/P (MAP) Pulse Ox O2 Delivery O2 Flow Rate FiO2 09/30/17 20:00 98.3 81 20 132/83 (99) 97 09/30/17 10:00 18 09/30/17 09:25 125/79 (94) Objective Remarks GENERAL: Well-nourished, well-developed patient. CARDIOVASCULAR: Regular rate and rhythm without murmurs, gallops, or rubs. RESPIRATORY: Breath sounds equal bilaterally. No accessory muscle use. ABDOMEN/GI: Abdomen soft, non-tender. Fundus: Firm, non-tender at umbilicus. GENITOURINARY: Light to moderate bleeding. EXTREMITIES: No cyanosis or edema, non-tender, without signs of DVT. Medications and IVs Current Medications Medications (Trade) Dose Ordered Sig/Delroy Route Start Time Stop Time Status Last Admin (Apresoline Inj) 10 mg NOW PRN IV PUSH 09/29/17 10:45 10/01/17 10:44 (Cytotec) 25 mcg Q4HR VAGINAL 09/29/17 12:00 09/29/17 16:00 (Zofran Inj) 4 mg Q6H PRN IV PUSH 09/29/17 19:30 Oxytocin 500 ml @ 0 mls/hr TITRATE PRN IV 09/30/17 01:00 (NS Flush) 2 ml BID IV FLUSH 09/30/17 09:00 09/30/17 09:59 (NS Flush) 2 ml UNSCH PRN IV FLUSH 09/30/17 03:15 (Tylenol) 650 mg Q4H PRN PO 09/30/17 03:15 (Motrin) 800 mg Q8H PRN PO 09/30/17 03:15 09/30/17 23:34 (Americaine 20% Top Spr) 1 spray Q4H PRN TOPICAL 09/30/17 03:15 09/30/17 04:52 (Tucks Pads) 1 applic QID PRN TOPICAL 09/30/17 03:15 09/30/17 04:51 (Amalia-Colace) 2 tab Q12H PRN PO 09/30/17 03:15 (Ambien) 5 mg HS PRN PO 09/30/17 03:15 (Mag-Al Plus Susp Liq) 15 ml Q8H PRN PO 09/30/17 03:15 (Zofran Odt) 4 mg Q6H PRN PO 09/30/17 03:15 (Depo-Provera Inj) 150 mg ONCE ONCE IM 10/01/17 08:30 10/01/17 08:31 UNV Assessment/Plan Problem List: (1) Elevated blood pressure affecting , antepartum ICD Codes: O16.9 - Unspecified maternal hypertension, unspecified trimester Status: Acute (2) Encounter for induction of labor ICD Codes: Z34.90 - Encounter for supervision of normal , unspecified , unspecified trimester Status: Acute Assessment and Plan 21y/o who is PPD#1 s/p . -Continue routine care. -Percocet and Motrin PRN pain. -Encouraged OOB. Advised pelvic rest for 6 wks. -Will need a f/u appt. within 6 wks. -Re: ctrl, she would like Depo shot -D/c today Kvng Pollock MD Oct 01, 2017 08:36
[2017-10-01] MEDS: IBUPROFEN 800 MG TAB PO PRN (08:46)
[2017-10-01] MEDS: MISOPROSTOL 100 MCG TAB VAGINAL SCH (09:16)
[2017-10-01] MEDS: SODIUM CHLORIDE 0.9% FLUSH 10 ML FLUSH IV FLUSH SCH (09:16)
[2017-10-01] MEDS ORDERED: oxyCODONE/ACETAMINOPHEN 5 MG/325 MG TAB PO ONE (09:30)
--- NOTE | 2017-10-01 09:33 | HHI.DCPOC ---
Discharge Care Plan Diagnosis: (1) care following vaginal delivery Report Symptoms to Your Doctor -Temperature above 100.5 degrees -Redness, of incision or excessive or foul smelling drainage -Unusual pain or calf pain -Increased vaginal bleeding -Painful or difficulty urinating -Feelings of extreme sadness or anxiety after 2 weeks Goals to Promote Your Health * To prevent worsening of your condition and complications * To maintain your health at the optimal level Directions to Meet Your Goals Take your medications as prescribed Follow your dietary instruction Follow activity as directed Ensure plenty of rest for recovery Drink fluids for hydration Keep your appointments as scheduled Take your immunizations and boosters as scheduled If your symptoms worsen call your PCP, if no PCP go to Urgent Care Center or Emergency Room Smoking is Dangerous to Your Health. Avoid second hand smoke Call the 24-hour crisis hotline for domestic abuse at Kvng Pollock MD Oct 01, 2017 09:33
== END 2017-10-01 12:03 | disposition home or self-care (01) | DRG 775 ==
LOC: HOBED 06:15 → H2EA 10:17 → H1EA 09-30 04:34
PROVIDERS: ADMIT Obstetrics & Gynecology Maternal & Fetal Medicine; ATTEND Obstetrics & Gynecology Maternal & Fetal Medicine
PROC: 3E0P7VZ Introduction of Hormone into Female Reproductive, Via Natural or Artificial Opening (ICD-10-PCS; principal; 2017-09-30)
PROC: 10E0XZZ Delivery of Products of Conception, External Approach (ICD-10-PCS; 2017-09-30)
PROC: 0KQM0ZZ Repair Perineum Muscle, Open Approach (ICD-10-PCS; 2017-09-30)
PROC: 10907ZC Drainage of Amniotic Fluid, Therapeutic from Products of Conception, Via Natural or Artificial Opening (ICD-10-PCS; 2017-09-30)
DX: O13.4 Gestational [pregnancy-induced] hypertension without significant proteinuria, complicating childbirth (principal); O32.1XX0 Maternal care for breech presentation, not applicable or unspecified; O70.1 Second degree perineal laceration during delivery; Z37.0 Single live birth; Z3A.38 38 weeks gestation of pregnancy
CPT/HCPCS: 59025; 76815; 80053; 80307; 81001; 82570; 84156; 84550; 85007; 85027; 86850; 86900; 86901; 87086; 90715; J0360; J1050; J2590; J3010; J7120